=== PATIENT | female | born 1975 ===

== ENCOUNTER 2017-03-11 09:18 | Emergency (ER) | payer OTHER ==
[2017-03-11 09:22] VITALS: BP 121/76; PULSE 79; RESP 16; TEMP 98.4; O2SAT 100
--- NOTE | 2017-03-11 09:49 | ED PDOC ---
HPI: Female Pain Time Seen by Provider: 03/11/17 09:24 Chief Complaint (Nursing): Abdominal Pain History Per: Patient Onset/Duration Of Symptoms: Days (2) Current Symptoms Are (Timing): Still Present Severity: Mild Pain Scale Rating Of: 2 Quality Of Discomfort: Cramping Associated Symptoms: denies: Nausea, Vomiting, Diarrhea, Urinary Symptoms Alleviating Factors: None Additional Complaint(s): Vaginal spotting assoc with lower abd cramping since last night. Home preg pos. LMP Jan 19 Abnormal Vaginal Bleeding: Yes Past Medical History Vital Signs: Last Vital Signs Temp 98.4 F 03/11/17 09:20 Pulse 79 03/11/17 09:20 Resp 16 03/11/17 09:20 BP 121/76 03/11/17 09:20 Pulse Ox 100 03/11/17 09:20 - Medical History PMH: No Chronic Diseases - Family History Family History: States: Unknown Family Hx - Home Medications Home Medications: Ambulatory Orders Medication Instructions Recorded No Known Home Med 03/11/17 - Allergies Allergies/Adverse Reactions: Allergies Allergy/AdvReac Type Severity Reaction Status Date / Time No Known Allergies Allergy Verified 03/11/17 09:26 Review of Systems ROS Statement: Except As Marked, All Systems Reviewed And Found Negative Gastrointestinal: Positive for: Abdominal Pain Genitourinary Female: Positive for: Vaginal Bleeding Physical Exam - Reviewed Nursing Documentation Reviewed: Yes Vital Signs Reviewed: Yes - Physical Exam Appears: Positive for: Non-toxic, No Acute Distress Head Exam: Positive for: ATRAUMATIC, NORMAL INSPECTION, NORMOCEPHALIC Skin: Positive for: Normal Color, Warm, DRY Eye Exam: Positive for: EOMI, Normal appearance, PERRL ENT: Positive for: Normal ENT Inspection Neck: Positive for: Normal, Painless ROM Cardiovascular/Chest: Positive for: Regular Rate, Rhythm Respiratory: Positive for: CNT, Normal Breath Sounds Gastrointestinal/Abdominal: Positive for: Bowel Sounds, Soft. Negative for: Tenderness Pelvic Exam: Positive for: External Exam Normal, No Masses, Blood (Small amount of clots in vault). Negative for: Mass, Tender Adnexa, Tender Uterus Back: Positive for: Normal Inspection Extremity: Positive for: Normal ROM Neurologic/Psych: Positive for: Alert, Oriented - Laboratory Results Result Diagrams: 03/11/17 10:31 03/11/17 10:31 - ECG O2 Sat by Pulse Oximetry: 100 Medical Decision Making Medical Decision Making: Time: 1151 --US transvag FINDINGS: UTERUS: Single intrauterine gestational sac. Yolk sac is visualized however pole is not identified on the current examination. Gestational sac diameter measures 0.82 cm Jennifer-gestational hemorrhage: None. Uterus measures 8.1 x 6.6 x 5.7 cm. No mass CERVIX: Long and closed. No cervical abnormality seen. RIGHT OVARY: Measures 2.9 x 1.5 x 2.1 cm. No mass. Normal flow. LEFT OVARY: Not visualized. FREE FLUID: None. OTHER FINDINGS: None. IMPRESSION: Single intrauterine gestational sac. Yolk sac is visualized however pole is not identified on the current examination. The gestational sac is too small to characterize gestational age. Clinical follow-up and imaging follow-up is recommended to confirm viability. Disposition - Clinical Impression Clinical Impression: Threatened miscarriage - Patient ED Disposition Is Patient to be Admitted: No Counseled Patient/Family Regarding: Studies Performed, Diagnosis, Need For Followup, Rx Given - Disposition [facility] Disposition: Routine/Home Disposition Time: 12:01 Condition: FAIR Additional Instructions: Repetir la prueba de reina Beta HCG en dos holt en kristian de emergencia Instructions: Threatened Miscarriage (ED) Forms: [facility] (Swedish) Print Language: MALTESE
[2017-03-11 10:39] LABS: BASO # 0.1 K/uL (0.0-0.2); BASO % 0.6 % (0.0-2.0); EOS # 0.2 K/uL (0.0-0.7); EOS % 2.2 % (0.0-4.0); HEMOGLOBIN 12.8 g/dL (12.0-16.0); LYMPH # 2.4 K/uL (1.0-4.3); LYMPH % 26.1 % (20.0-40.0); MEAN CELL VOLUME 84.7 fl (81.0-99.0); MEAN CORPUSCULAR HEMOGLOBIN 27.8 pg (27.0-31.0); MEAN CORPUSCULAR HGB CONC 32.8 g/dL (33.0-37.0); MEAN PLATELET VOLUME 8.5 fl (7.2-11.7); MONO % 11.2 % (0.0-10.0); NEUT # 5.4 K/uL (1.8-7.0); NEUT % 59.9 % (50.0-75.0); NRBC % 0.2 % (0.0-0.0); RBC 4.61 Mil/uL (3.80-5.20)
[2017-03-11 10:50] LABS: ALBUMIN 4.3 g/dL (3.5-5.0); CALCIUM 9.2 mg/dL (8.4-10.2); GFR AFRICAN-AMERICAN > 60; GFR NON-AFRICAN AMERICAN > 60
[2017-03-11 10:55] LABS: ALT/SGPT 24 U/L (9-52); AST/SGOT 29 U/L (14-36); BLOOD UREA NITROGEN 13 mg/dl (7-17)
--- NOTE | 2017-03-11 11:52 | US ---
PROCEDURE: OB Pelvic Ultrasound HISTORY: r/o ectopic COMPARISON: None available. FINDINGS: UTERUS: Single intrauterine gestational sac. Yolk sac is visualized however pole is not identified on the current examination. Gestational sac diameter measures 0.82 cm Jennifer-gestational hemorrhage: None. Uterus measures 8.1 x 6.6 x 5.7 cm. No mass CERVIX: Long and closed. No cervical abnormality seen. RIGHT OVARY: Measures 2.9 x 1.5 x 2.1 cm. No mass. Normal flow. LEFT OVARY: Not visualized. FREE FLUID: None. OTHER FINDINGS: None. IMPRESSION: Single intrauterine gestational sac. Yolk sac is visualized however pole is not identified on the current examination. The gestational sac is too small to characterize gestational age. Clinical follow-up and imaging follow-up is recommended to confirm viability.
== END 2017-03-11 12:41 | disposition home or self-care (01) ==
LOC: H.ER 09:18
DX: O20.0 Threatened abortion (principal)

== ENCOUNTER 2017-03-11 20:21 | Emergency (ER) | payer OTHER ==
[2017-03-11 20:37] VITALS: BP 131/71; PULSE 85; RESP 16; TEMP 98.7; O2SAT 99
--- NOTE | 2017-03-11 21:09 | ED PDOC ---
HPI: Female Pain Time Seen by Provider: 03/11/17 20:41 Chief Complaint (Nursing): Female Genitourinary Chief Complaint (Provider): : vaginal bleeding History Per: Patient, Family History/Exam Limitations: no limitations Onset/Duration Of Symptoms: Days (1) Current Symptoms Are (Timing): Still Present Quality Of Discomfort: Cramping Additional History Per: Patient Additional Complaint(s): 41 y/o female, approximately 6 weeks gestation, presents with vaginal bleeding x 1 day. Associated pelvic cramping. Patient seen this am for same, states since bleeding has become more heavy, with associated clots. Denies fever, nausea/vomiting, chest pain, shortness of breath, palpitations, changes in bowel movements, urinary symptoms. Abnormal Vaginal Bleeding: Yes Last Menstral Period: 01/12/17 : 2 Para: 1 Miscarriage: 0 Past Medical History Reviewed: Historical Data, Nursing Documentation, Vital Signs Vital Signs: Last Vital Signs Temp 98.7 F 03/11/17 20:34 Pulse 85 03/11/17 20:34 Resp 16 03/11/17 20:34 BP 131/71 03/11/17 20:34 Pulse Ox 99 03/11/17 20:34 - Medical History PMH: No Chronic Diseases - Surgical History Surgical History: No Surg Hx - Family History Family History: States: Unknown Family Hx - Home Medications Home Medications: Ambulatory Orders Medication Instructions Recorded No Known Home Med 03/11/17 - Allergies Allergies/Adverse Reactions: Allergies Allergy/AdvReac Type Severity Reaction Status Date / Time No Known Allergies Allergy Verified 03/11/17 20:34 Review of Systems ROS Statement: Except As Marked, All Systems Reviewed And Found Negative Genitourinary Female: Positive for: Vaginal Bleeding, Pelvic Pain Physical Exam - Reviewed Nursing Documentation Reviewed: Yes Vital Signs Reviewed: Yes - Physical Exam Appears: Positive for: Well, Non-toxic, No Acute Distress Head Exam: Positive for: ATRAUMATIC, NORMAL INSPECTION, NORMOCEPHALIC Skin: Positive for: Normal Color Eye Exam: Positive for: Normal appearance ENT: Positive for: Normal ENT Inspection Cardiovascular/Chest: Positive for: Regular Rate, Rhythm Respiratory: Positive for: Normal Breath Sounds Gastrointestinal/Abdominal: Positive for: Normal Exam, Bowel Sounds, Soft. Negative for: Tenderness Pelvic Exam: Positive for: External Exam Normal, Speculum Exam Normal, No Cerv. Motion Tender, Blood (vaginal vault), Other (cervix closed. 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 Negative for: Active Bleeding (no clots/tissue) Back: Positive for: Normal Inspection Extremity: Positive for: Normal ROM Neurologic/Psych: Positive for: Alert, Oriented - ECG O2 Sat by Pulse Oximetry: 99 - Progress ED Course And Treament: labs/u/s reviewed from earlier visit; shows early intrauterine gestational sac too early to date. Vitals stable. Patient re-educated on findings, given reassurance. Advised to follow up in 48 hours as previously instructed Pelvic rest. Return precautions given. Disposition - Clinical Impression Clinical Impression: Threatened miscarriage - Patient ED Disposition Is Patient to be Admitted: No Counseled Patient/Family Regarding: Diagnosis, Need For Followup - Disposition [facility] [[facility]] Disposition: Routine/Home Disposition Time: 21:38 Condition: STABLE Instructions: Threatened Miscarriage (ED) Print Language: CHILEAN
== END 2017-03-11 21:46 | disposition home or self-care (01) ==
LOC: H.ER 20:21
DX: O20.0 Threatened abortion (principal); Z3A.01 Less than 8 weeks gestation of pregnancy

== ENCOUNTER 2017-03-13 07:48 | Emergency (ER) | payer OTHER ==
[2017-03-13 08:30] VITALS: BP 123/79; PULSE 73; RESP 16; TEMP 99.3; O2SAT 100
--- NOTE | 2017-03-13 12:26 | ED PDOC ---
HPI: General Adult Time Seen by Provider: 03/13/17 08:35 Chief Complaint (Nursing): Female Genitourinary Chief Complaint (Provider): Abnormal Labs History Per: Patient History/Exam Limitations: no limitations Onset/Duration Of Symptoms: Days (x2) Current Symptoms Are (Timing): Still Present Recently: Seen In ED Additional Complaint(s): 41 y/o female, approximately 6 weeks , returns to the emergency department for repeat beta quant today. Was seen here on 03/11/17, had an ultrasound showing IUP. Patient now reports vaginal bleeding and lower abdominal pain for 4 days. She states the pain comes and goes. No vomiting or fever. PMD: Provider TBRichelle Past Medical History Reviewed: Historical Data, Nursing Documentation, Vital Signs Vital Signs: Last Vital Signs Temp 99.3 F 03/13/17 08:26 Pulse 73 03/13/17 08:26 Resp 16 03/13/17 08:26 BP 123/79 03/13/17 08:26 Pulse Ox 100 03/13/17 13:16 - Medical History PMH: No Chronic Diseases - Surgical History Surgical History: No Surg Hx - Family History Family History: States: Unknown Family Hx - Social History Current smoker - smoking cessation education provided: No Alcohol: None Drugs: Denies - Home Medications Home Medications: Ambulatory Orders Medication Instructions Recorded No Known Home Med 03/11/17 - Allergies Allergies/Adverse Reactions: Allergies Allergy/AdvReac Type Severity Reaction Status Date / Time No Known Allergies Allergy Verified 03/11/17 20:34 Review of Systems ROS Statement: Except As Marked, All Systems Reviewed And Found Negative Constitutional: Negative for: Fever Gastrointestinal: Positive for: Abdominal Pain (lower). Negative for: Nausea, Vomiting, Diarrhea Genitourinary Female: Positive for: Vaginal Bleeding Physical Exam - Reviewed Nursing Documentation Reviewed: Yes Vital Signs Reviewed: Yes - Physical Exam Appears: Positive for: Non-toxic, No Acute Distress Head Exam: Positive for: ATRAUMATIC, NORMOCEPHALIC Skin: Positive for: Normal Color, Warm, Dry Eye Exam: Positive for: EOMI, Normal appearance, PERRL Neck: Positive for: Normal, Supple Cardiovascular/Chest: Positive for: Regular Rate, Rhythm. Negative for: Murmur Respiratory: Positive for: Normal Breath Sounds. Negative for: Accessory Muscle Use, Respiratory Distress Gastrointestinal/Abdominal: Positive for: Normal Exam, Bowel Sounds, Soft. Negative for: Tenderness, Guarding, Rebound Extremity: Positive for: Normal ROM. Negative for: Pedal Edema, Deformity Neurologic/Psych: Positive for: Alert, Oriented - Laboratory Results Urine POC: Negative - ECG O2 Sat by Pulse Oximetry: 100 (RA) Pulse Ox Interpretation: Normal Medical Decision Making Medical Decision Making: Ultrasound from 03/11/2017: FINDINGS: UTERUS: Single intrauterine gestational sac. Yolk sac is visualized however pole is not identified on the current examination. Gestational sac diameter measures 0.82 cm Jennifer-gestational hemorrhage: None. Uterus measures 8.1 x 6.6 x 5.7 cm. No mass CERVIX: Long and closed. No cervical abnormality seen. RIGHT OVARY: Measures 2.9 x 1.5 x 2.1 cm. No mass. Normal flow. LEFT OVARY: Not visualized. FREE FLUID: None. OTHER FINDINGS: None. IMPRESSION: Single intrauterine gestational sac. Yolk sac is visualized however pole is not identified on the current examination. The gestational sac is too small to characterize gestational age. Clinical follow- up and imaging follow-up is recommended to confirm viability. Time: 9:39 Initial Plan: --Beta-HCG quantitative --US OB Transvaginal --Pending reevaluation Reviewed the beta quant level, 410.16, which is significantly decreased from last visit. Time: 12:22 Discussed case with LIBRA Naylor on-call. Findings are consistent with miscarriage, and there is no need to repeat US today. Patient will be discharged home and follow up with PCP for further evaluation. There is agreement to discharge plan. Return if symptoms persist or worsen. Scribe Attestation: Documented by Valerie Garcia, acting as a scribe for Page Cruz MD Provider Scribe Attestation: All medical record entries made by the Scribe were at my direction and personally dictated by me. I have reviewed the chart and agree that the record accurately reflects my personal performance of the history, physical exam, medical decision making, and the department course for this patient. I have also personally directed, reviewed, and agree with the discharge instructions and disposition. Disposition - Clinical Impression Clinical Impression: Threatened miscarriage, Spontaneous - Patient ED Disposition Is Patient to be Admitted: No Counseled Patient/Family Regarding: Studies Performed, Diagnosis, Need For Followup - Disposition Referrals: [facility] [Outside] Disposition: Routine/Home Disposition Time: 12:23 Condition: GOOD Additional Instructions: Follow up with your PCP in 1 week. Instructions: Spontaneous Miscarriage (ED) Forms: [facility] ED School/Work Excuse Print Language: GREEK
== END 2017-03-13 12:59 | disposition home or self-care (01) ==
LOC: H.ER 07:48
DX: O03.9 Complete or unspecified spontaneous abortion without complication (principal); Z3A.01 Less than 8 weeks gestation of pregnancy